=== PATIENT | male | born 1945 | race Caucasian/White ===

== ENCOUNTER → 2017-05-17 | Day surgery (SDC) | payer MEDICARE, OTHER ==
[~2017-05-17] VITALS: Ht 177.8 cm; Wt 120.2 kg
[~2017-05-17] MED LIST: ASCO100089 PO; ASPI-628 PO; CHOL200047 PO; CRES20T PO; GINK60CA13 PO; GLUC100016 PO; M-171CAP PO; MULT-666 PO; NIAC750T15 PO; OMEG500C PO; PSYL0.5216 PO; SILD100T PO; TLT2T PO; fentaNYL-PF 50 mCg/mL 2 mL Inj IVPUSH PRN
[2017-05-17 15:40] VITALS: BP 138/78; PULSE 67; RESP 14; O2SAT 97
[2017-05-17 17:15] VITALS: BP 118/62; PULSE 58; RESP 14; O2SAT 95
--- NOTE | 2017-05-17 17:20 | ENDO ---
[address] [address] ENDOSCOPY PROCEDURE PATIENT: MARTINE CLAYTON : 1945 MR#: [id number] ADMIT: 05/17/2017 JOB ID: [id number] DATE: 05/17/2017 PREPROCEDURE DIAGNOSIS: Dysphagia. POSTPROCEDURE DIAGNOSIS: Hiatal hernia; mild esophagitis; nodule at the gastroesophageal junction; duodenal ulcerations. PROCEDURE PERFORMED: Upper endoscopy with biopsies. SURGEON: Susannah Chirinos MD INSTRUMENT: Olympus GIF H 180 J. MEDICATIONS: 1. Versed 5 mg. 2. Fentanyl 100 mcg. FINDINGS: 1. There was a hiatal hernia with the squamocolumnar junction at 37 and the diaphragmatic hiatus at 41. 2. At the GE junction there is mild irregularity and a small heaped up region of inflammation with a nodular appearance, which was biopsied. 3. There were multiple small ulcerations in the third portion of the duodenum, biopsied. 4. Diffuse duodenitis of the first portion of the duodenum, biopsied. HISTORY OF PRESENT ILLNESS: This is a 79-year-old man who presented to my office with complaints of dysphagia. He was not losing weight and was still tolerating most of his normal foods including steak and salad. Because of increasing symptoms of dysphagia, upper endoscopy and upper GI fluoroscopy were performed. At the time of endoscopy the patient reported that his symptoms had improved significantly. DESCRIPTION OF PROCEDURE: The patient was brought to the procedure suite and placed in left lateral decubitus position. A bite block was placed and moderate anesthesia was induced after a preprocedural time-out pause was performed. The endoscope was advanced to the third portion of the duodenum. Findings were as noted above, including multiple small ulcerations at D3, duodenitis in D1, a normal stomach with the exception of a 4 cm sliding hiatal hernia, and what appeared to be a Schatzki's ring and a heaped up area of esophageal mucosa at the gastroesophageal junction with the appearance of a small nodule. This nodule was biopsied and sent as a separate specimen. Additionally, the Schatzki's ring was biopsied in order to free it up somewhat. There were no discrete masses and no tongues suggestive of Hamilton's. The endoscope was retroflexed within the stomach and there was a Hill grade 1 flap valve. There are no polyps or masses in the stomach. The remainder of the esophagus was normal. The patient tolerated the procedure well. ESTIMATED BLOOD LOSS: None. SPECIMENS: 1. Ulcerations at D3. 2. Duodenitis in D1. 3. A 5 mm nodule at the GE junction. 4. Schatzki's ring at the GE junction.
[2017-05-17 17:25] VITALS: BP 111/62; PULSE 60; RESP 14; O2SAT 93
--- NOTE | 2017-05-22 15:19 | PATH ---
SURGICAL PATHOLOGY Attending Physician:Susannah Chirinos MD CASE STATUS: Signed Out PATIENT NAME: MARTINE CLAYTON PID: [id number] : 1945 DATE COLLECTED:05/17/2017 00:00 SPECIMEN: 1: Gastric, Biopsy 2: Duodenum, Biopsy 3: Esophagus, Biopsy 4: Esophagus, Biopsy CLINICAL HISTORY: 1). ULCERS AT 03 BIOPSY 2). DUODENITIS AT 01 BIOPSY 3). NODULE AT GASTROESOPHAGEAL JUNCTION BIOPSY 4). GASTROESOPHAGEAL JUNCTION BIOPSY FINAL DIAGNOSIS: 1. Duodenal Ulcer, Third Portion, Biopsy: Duodenal mucosa with erosion. Negative for dysplasia or malignancy. 2. Duodenum, First Segment, Biopsy: Duodenal mucosa with foveolar metaplasia. Negative for features of sprue, dysplasia or malignancy. 3. Gastroesophageal Junction, Nodule, Biopsy: Squamous mucosa with ulcer. Negative for fungal organisms on PAS stain. Negative for dysplasia or malignancy. 4. Gastroesophageal Junction, Biopsy: Squamocolumnar junctional mucosa with chronic inflammation. Negative for intestinal metaplasia, dysplasia or malignancy. ICD10: R13.10 GROSS DESCRIPTION: The specimen is received in four formalin filled containers labeled with the patient's name. 1). The specimen is labeled "ulcer at 03" and consists of a 0.3 x 0.2 x 0.2 CM portion of tissue which is entirely submitted in cassettes 1A. 2). The specimen is labeled "duodenitis at 01" and consists of a 0.3 x 0.2 x 0.2 CM portion of tissue which is entirely submitted in cassette 2A. 3). The specimen is labeled "nodule at GJ" and consists of a 0.2 x 0.2 x 0.2 CM portion of tissue which is entirely submitted in cassette 3A. 4). The specimen is labeled " GEJ " and consists of 2 portions of tissue which aggregate to 0.2 x 0.2 x 0.1 CM. The specimen is entirely submitted in cassette 4A. 05/18/2017DC MICRO DESCRIPTION: Part 3: A PAS stain was performed to evaluate for fungal organisms and is negative. The control stain shows appropriate reactivity. ICD-9 CODES: CPT CODES: 1: 35324 2: 76431 3: 19713, 27729 4: 71539 Electronically Signed Out Aleksander Ulrich MD, Ph.D. Merged With [facility] [address], [place] [address] Technical component performed at [facility], [address], [place], [address]
== END | disposition home or self-care (01) ==
LOC: END 00:35
PROVIDERS: ATTEND Surgery
DX: K22.2 Esophageal obstruction (principal); K29.80 Duodenitis without bleeding; K44.9 Diaphragmatic hernia without obstruction or gangrene; K25.9 Gastric ulcer, unspecified as acute or chronic, without hemorrhage or perforation; R13.10 Dysphagia, unspecified; E78.5 Hyperlipidemia, unspecified; G47.33 Obstructive sleep apnea (adult) (pediatric); Z79.82 Long term (current) use of aspirin
CPT/HCPCS: 43239; 88305; 88313; 99153; G0500; J2250; J3010; J7030